=== PATIENT | female | born 1955 | race Caucasian/White ===

== ENCOUNTER 2018-06-03 05:36 | Inpatient (IN) ==
[~2018-06-03 05:36] MED LIST: Metoprolol Tartrate 25 MG Tablet PO SCH
[2018-06-03] MEDS ORDERED: Insulin Regular (For Infusion) 100 UNIT in Sodium Chlor 0.9% Inj 99 ML IV.CONT PRN ×2 (06:23→11:56)
[2018-06-03] MEDS ORDERED: Dextrose 50% in Water 50 ML Vial IV.PUSH PRN ×2 (06:23→11:56)
[2018-06-03] MEDS ORDERED: Chlorhexidine Gluconate 2% 1 Pack (2 Cloths) TOPICAL SCH (06:30)
[2018-06-03] MEDS ORDERED: Chlorhexidine 4% Topical 120 APPLIC/120 ML Bottle TOPICAL SCH (06:30)
[2018-06-03] MEDS ORDERED: Sodium Chloride 0.9% Irr Bot 500 ML, ceFAZolin Inj 500 MG IRRIGATION SCH ×2 (06:30)
[2018-06-03] MEDS ORDERED: Metoprolol Tartrate 25 MG Tablet PO SCH (06:30)
[2018-06-03] MEDS ORDERED: Heparin - SQ 10,000 UNITS/ML Vial ONE (06:46)
[2018-06-03] MEDS ORDERED: Sodium Chlor 0.9% Inj 500 ML IV.SIG SCH (07:00)
[2018-06-03] MEDS ORDERED: ceFAZolin Inj 2,000 MG in Sodium Chlor 0.9% Inj 80 ML IV.SIG SCH (07:00)
[2018-06-03] MEDS ORDERED: CUST1000P IRRIGATION ONE (07:21)
[2018-06-03] MEDS ORDERED: Potassium Chlor 40 mEq Premix 40 MEQ/100 ML PIGGYBACK ONE (07:21)
[2018-06-03] MEDS ORDERED: Calcium Chloride Inj 1 GM/10 ML Syringe ONE (07:22)
[2018-06-03] MEDS ORDERED: Heparin 10,000 UNITS/10 ML Vial (for IV use) ONE (07:22)
[2018-06-03] MEDS ORDERED: Albumin Human 25% Inj 50 ML IV.SIG ONE (07:23)
[2018-06-03] MEDS ORDERED: Clevidipine Inj 25 MG/50 ML VIAL IV.CONT PRN (11:56)
[2018-06-03] MEDS ORDERED: Magnesium Sulfate Inj 2 GM in Sodium Chlor 0.9% Inj 96 ML IV.SIG PRN ×4 (11:56)
[2018-06-03] MEDS ORDERED: RESP: Racemic Epinephrine 2.25% 0.5 ML Neb NEB SCH (11:56)
[2018-06-03] MEDS ORDERED: Albumin Human 5% Inj 250 ML IV.SIG PRN (11:56)
[2018-06-03] MEDS ORDERED: Potassium Chlor 20 mEq Premix 20 MEQ/100 ML PIGGYBACK IV.SIG PRN (11:56)
[2018-06-03] MEDS ORDERED: Calcium Chloride Inj 1 GM/10 ML Syringe IV.PUSH PRN (11:56)
[2018-06-03] MEDS ORDERED: Metoprolol Inj 5 MG/5 ML Vial IV.PUSH PRN (11:56)
[2018-06-03] MEDS ORDERED: Calcium Chloride Inj 1 GM in Sodium Chlor 0.9% Inj 100 ML IV.SIG PRN (11:56)
[2018-06-03] MEDS ORDERED: Dexmedetomidine Inj 200 MCG in Sodium Chlor 0.9% Inj 48 ML IV.CONT PRN (11:56)
[2018-06-03] MEDS ORDERED: Morphine Inj 4 MG/ML Vial IV.PUSH PRN (11:56)
[2018-06-03] MEDS ORDERED: Post-op Orders (for Pharmacy) OTHER STA (11:56)
[2018-06-03] MEDS ORDERED: Esmolol Bolus Inj 100 MG/10 ML Vial IV.PUSH ONE (12:00)
[2018-06-03] MEDS ORDERED: Sodium Chlor 0.9% Inj 100 ML IV.SIG ONE (12:00)
[2018-06-03] MEDS ORDERED: Protamine Sulfate Inj 250 MG/25 ML Vial IV.CONT ONE (12:00)
[2018-06-03] MEDS ORDERED: Phenylephrine/NS 1000 MCG/10ML Syringe IV.PUSH ONE (12:00)
[2018-06-03] MEDS ORDERED: Heparin - SQ 10,000 UNITS/ML Vial OTHER ONE (12:00)
[2018-06-03] MEDS ORDERED: Calcium Chloride Inj 1 GM/10 ML Syringe IV.CONT ONE (12:00)
[2018-06-03] MEDS ORDERED: Lidocaine 2% 100 MG/5 ML Syringe IV.PUSH ONE (12:00)
[2018-06-03] MEDS ORDERED: Sodium Chlor 0.9% Inj 250 ML IV.SIG ONE (12:00)
[2018-06-03] MEDS ORDERED: Aminocaproic Acid Inj 5,000 MG/20 ML Vial IV.CONT ONE (12:00)
[2018-06-03] MEDS ORDERED: Artificial Tears Opth Oint 3.5 GM Tube EACH EYE ONE (12:00)
--- NOTE | 2018-06-03 12:05 | P.OP ---
Date of procedure: 06/03/18 Anesthesia: LIMAA Surgeon: Nitin Douglas MD Operation and Findings: PREOPERATIVE DIAGNOSES 1. Severe Aortic Stenosis. 2. Severe aortic Insufficiency POSTOPERATIVE DIAGNOSES Same SURGICAL PROCEDURE Aortic Valve Replacement with a 25 mm Medtronic Mosaic Cinch Tissue valve. RISK ASSESSMENT ANALYST STEPHEN Lindsay ANESTHESIA General endotracheal. PARTY COORDINATOR Jackie Dunham CRNA, Gómez Strong MD PREPARATION ChloraPrep. NEEDLE, SPONGE AND INSTRUMENT COUNT Correct. DRAINS One 32-Urdu mediastinal tube. COMPLICATIONS None. INDICATIONS The patient is a 63-year-old lady with severe aortic stenosis, presenting for surgical correction of the above pathology. DESCRIPTION OF PROCEDURE The patient was brought to the operating room and placed supine on the OR table. Following the induction of adequate general endotracheal anesthesia and placement of appropriate monitoring devices, the patient was then prepped and draped in the standard sterile fashion. Median sternotomy was performed, the pericardium was divided in the midline and the cradle created. The patient was systemically heparinized and anticoagulation monitored by serial ACT measurements. Then 2 pursestring sutures of 2-0 Ethibond were placed on the aorta proximal to the takeoff of the innominate artery, another was placed in the right atrial appendage. At this point, aortic and 2-stage venous cannulae were introduced and attached to the arterial and venous components of the bypass circuit respectively. Antegrade cardioplegia cannula and a left ventricular vent, through the right superior pulmonary vein, were also placed. The patient was placed on cardiopulmonary bypass and core cooling initiated to a temperature of 32 degrees centigrade. The crossclamp was applied and 1 l of cardioplegia solution (Alf HTK) given in an antegrade fashion in addition to topical cooling with slushed saline. Upon achieving adequate diastolic arrest of the heart a transverse aortotomy was performed. Additional cardioplegia was given directly into the coronary ostia using a hand-held probe. 800 mL's was given into the left main and additional 500 mL was given down the right coronary artery. The aortic valve was then excised. The valve was very heavily calcified. Complete circumferential decalcification was performed and care was taken to aspirate and remove all particulate matter. Horizontal mattress sutures of interrupted 2-0 Ethibond were placed on the aortic annulus with pledgets on the ventricular side. After adequate sizing, a 25 mm Medtronic Mosaic tissue valve was brought in the surgical field and the sutures passed through the skirt. The valve was seated using Cor-knots. This appeared to be a good fit. Gradual rewarming was initiated and the aortotomy closed in 2 layers. This was with 4-0 Prolene; the 1st layer being horizontal mattress, the 2nd layer being running baseball stitch. The cross clamp was removed and upon achieving normothermic cardiac activity, transesophageal echocardiography revealed a well-situated aortic prosthesis with no evidence of perivalvular leak and no aortic stenosis or aortic regurgitation. Protamine was administered. Decannulation was performed and all sites were inspected for hemostasis. At this point the closure was undertaken. The pericardium was reapproximated in the midline. One chest tube was placed, and the sternum was reapproximated using stainless steel sternal wires. The musculo-fascial layer was then closed in 3 layers. The patient tolerated the procedure well and was transferred to open heart recovery in stable condition.
[2018-06-03 12:36] LABS: ABG Base Excess -1.5 mmol/L (-2-2); ABG PCO2 42 mmHg (38-42); ABG PO2 100 mmHG (61-120)
[2018-06-03] MEDS ORDERED: fentaNYL Citrate Inj 250 MCG/5 ML Ampul ONE (12:41)
--- NOTE | 2018-06-03 13:17 | XR ---
EXAM DATE: 06/03/2018 1:10 PM EDT AGE/SEX: 63 years / Female INDICATIONS: Post AVR. CLINICAL DATA: This is the patient's initial encounter. Patient reports that signs and symptoms have been present for 1 day and indicates a pain score of Nonresponsive. MEDICAL/SURGICAL HISTORY: Hypertension. Aortic valve stenosis. Hysterectomy. Cholecystectomy. Tubal ligation. COMPARISON: [facility] [place] CHEST TRANSAORTIC VALVE [place]P, 05/05/2018. . FINDINGS: Portable AP view of the chest demonstrates a normal-sized cardiac silhouette in this patient post med tiny sternotomy. Endotracheal tube distal tip measures 4.3 cm from the jerson and nasogastric tube dis brennan tip is in the stomach. Mediastinal drain is present. Right IJ line distal tip is in the SVC. Lung s are underinflated with bibasilar airspace opacity, left greater than right. No pleural effusion or pneumothorax is identified. The bones and soft tissues demonstrate no acute finding. Breast implants are present. CONCLUSION: 1. Underinflation with atelectasis at the right lung base and atelectasis versus consolidation at th e left lung base. 2. Expected tubes and lines, as above. No pneumothorax is present. Electronically signed by: Jake Preciado MD 06/03/2018 1:16 PM EDT
--- NOTE | 2018-06-03 14:25 | P.PNCV ---
- Note Subjective/Hospital Course: 63/ female post cardiac cath severe , preserved LV, normal coronaries , seen in office 04/29/[address] Douglas. Initially presented with worsening SOB PMH: DM type 2, valvular heart disease, HLP, HTN electively admitted 06/03 surgery : Aortic Valve Replacement with a 25 mm Medtronic Mosaic Cinch Tissue valve. Objective: Vital Signs - 24 hr 06/03/18 07:09 06/03/18 12:30 Temperature 97.8 F Pulse Rate 62 Respiratory Rate 20 12 Blood Pressure 164/94 H Labs: Laboratory Results - last 12 hr 06/03/18 06/03/18 06/03/18 06:30 12:30 14:09 Puncture Site Art line Patient Temperature 98.6 O2 Saturation 95 ABG pH 7.36 L ABG pCO2 42 ABG pO2 100 ABG HCO3 23 ABG O2 Content 14.7 ABG Base Excess -1.5 ABG Methemoglobin 1.6 Hemoglobin 10.9 L Carboxyhemoglobin 1.1 O2 Delivery Device Ventilator Vent Setting Simv12/550/+5peep Inspired O2 60 Critical Value No POC Glucose 152 H Blood Type O Positive Antibody Screen Negative MTS Gel Crossmatch See Detail - Plan (3) Diabetes mellitus (3) Diabetes mellitus Qualifiers: Diabetes mellitus type: type 2
--- NOTE | 2018-06-03 14:31 | P.DCO ---
- Diagnosis (2) Diabetes mellitus - Home Health Nursing Instructions: Heart and Vascular Surgery patients *Special attention to sternal dressing Mandatory frequency Assess and evaluation, 4 days in a row The next week 3X week 2 times a week for 4 weeks 1 time a week for 5 weeks Schedule Heart and Vascular patients for full 60 day certification period Initial visit Review Open Heart Surgery Discharge Instructions (Sternal precautions, Activity, Elastic hose, Incision care, Driving, Incentive spirometry, Smoking, Schulter, Work and other) Need Betadine to paint incision Medication reconciliation Importance of follow up care/ check on appointments Make calendar record temperature daily When to call [facility] nurse, review instructions, phone list Incentive Spirometry, demonstration Visit 1- Begin discharge instruction for patient family and/ or caregiver using teach back method- Signs and symptoms of infection Disease characteristics Medicines and side effects Foods and nutrition/ appetite Infection control/ hand washing/ hygiene Visit 2- Continue teaching Discharge instructions- include additional information on smoking cessation , sternal dressing (sternal vac) Visit 3- Continue teaching- Cough and deep breathing, incision monitoring. Choose my plate Visit 4- Continue teaching- Discuss limitations Discuss how they are feeling Discuss progress toward goals Remaining visits- continue teaching and monitoring For any questions please call : Thursday 8am-5pm Heart & Vascular Surgery Office ( Dr. Douglas & Dr. Arreguin), After Hours / Nights (5pm -8am) Weekends and Holidays Please call [facility] Cardiac Intermediate Care Unit (CIC) Charge Nurse PREVENA Single Use Negative Wound Therapy System Caregiver Instruction Sheet 1. A Prevena dressing system was applied to the chest incision during surgery , to promote wound healing. It works via a suction device (negative pressure wound therapy) to remove low to moderate levels of exudate (drainage) and infectious materials. We recommend that the device stay in place for up to seven days, from day of surgery. 2. Day of Surgery__06/04/18 Day of Removal ____06/11/18 3. The dressing should only be removed by a health home care rn. Please arrange removal of device to coincide with Home Health visit and or with Nursing staff at Rehab 4. If skin reddening or irritation of skin occurs, or excessive drainage, please notify the Cardiovascular Surgeons office at [phone]. 5. Light showering is permissible; however the pump should be disconnected and placed in safe location, where it will not get wet. The dressing should not be exposed to direct spray or submerged in water. No bath tub / shower only. Ensure the end of the tubing attached to the dressing is facing down so that water does not enter the top of the tube. 6. To remove Prevena dressing: press purple button to turn off device / remove the suction. Then disconnect the tubing from the pump. The fixation strips should be stretched away from the skin and the dressing lifted at one corner and peeled back until it has been fully removed. 7. After removal, it is ok to shower daily using liquid dial soap and clean wash cloth, rinse and pat dry, and leave incision open to air dry. For any concerns regarding Prevena dressing, and or wounds, please contact Kirstin Fitch, patient navigator at [phone] or notify the Cardiovascular Surgeons office at [phone]. Incentive spirometry Q1 hr x 10, while awake, also use acapella device hourly whole awake Sternal Breast Bone Precautions: NO pushing or pulling, ( pt must use sternal pillow to support chest with all activities and with coughing ( takes up to 3 months breast bone to heal ) Daily incision care: ok to shower daily, no tub bath. Wash all incisions with liquid dial soap, clean wash cloth to each site, rinse and pat dry. Observe for any signs of infection, such as drainage which is dark yellow, rodrigez, green or foul smelling. Immediately report to the surgeon any drainage from the chest incision, or legs, and for any abnormal drainage from the chest tube sites. Notify surgeon if any temp >101.5 degrees F. When specialty dressing removed/ or if you do not have one, continue to shower daily as above, then rinse and pat incision dry and paint with betadine daily x 5 days. Allow steri strips to fall off if you have any. Avoid lotions, creams, salves, oils, etc. for the first month Please see attached forms for additional instructions regarding post Open Heart specialty wound vacuum dressings. [place] or Prevena , Dressing to be removed by Nursing staff on __06/11/18 F/U appointment: as per DC instructions: PCP in 2 weeks, CV surgeon 2 weeks, Forepart Reducer 3-4 weeks For any questions regarding incisions/ dressing / meds / post op care or above Symptoms, Thursday 8am-5pm Heart & Vascular Surgery Office ( Dr. Douglas & Dr. Arreguin), After Hours / Nights (5pm -8am) Weekends and Holidays Please call [facility] Cardiac Intermediate Care Unit (CIC) Charge Nurse - Certification I have seen patient Daisy Singleton on 06/03/18. My clinical findings support the need for the requested home health care services because: Deconditioned with increased weakness I certify that my clinical findings support that this patient is homebound because: Post-op weakness (2) Diabetes mellitus Qualifiers: Diabetes mellitus type: type 2
[2018-06-03] MEDS: fentaNYL Citrate Inj 100 MCG/2 ML Ampul IV.PUSH PRN ×4 (14:40→23:11)
[2018-06-03] MEDS: Potassium Chlor 20 mEq Premix 20 MEQ/100 ML PIGGYBACK IV.SIG PRN ×3 (15:26→22:30)
[2018-06-03] MEDS: Ketorolac Inj 30 MG/ML (IVP) Vial IV.PUSH PRN (19:40)
[2018-06-03] MEDS: Amiodarone 200 MG Tablet PO SCH (22:06)
[2018-06-03] MEDS: ceFAZolin Inj 2,000 MG in Sodium Chlor 0.9% Inj 80 ML IV.SIG SCH (22:06)
[2018-06-03] MEDS: Potassium Chlor 10 mEq Premix 10 MEQ/100 ML PIGGYBACK IV.SIG PRN (22:30)
[2018-06-04] MEDS: Potassium Chlor 10 mEq Premix 10 MEQ/100 ML PIGGYBACK IV.SIG PRN (00:45)
[2018-06-04] MEDS: Ketorolac Inj 30 MG/ML (IVP) Vial IV.PUSH PRN ×3 (02:05→20:26)
[2018-06-04] MEDS: fentaNYL Citrate Inj 100 MCG/2 ML Ampul IV.PUSH PRN ×2 (03:12→05:59)
[2018-06-04 04:24] LABS: Hematocrit 32.4 % (35.0-46.0); Hemoglobin 11.2 gm/dL (11.6-15.3); Mean Corpuscular HGB Conc 34.6 % (32.0-36.0); Mean Corpuscular Hemoglobin 31.8 pg (27.0-34.0); Mean Corpuscular Volume 91.9 fL (80.0-100.0); Platelet Count 171 th/mm3 (150-450); Red Blood Count 3.52 mil/mm3 (4.00-5.30); Red Cell Distribution Width 15.4 % (11.6-17.2)
[2018-06-04 04:30] LABS: Anion Gap 9 meq/L (5-15); Blood Urea Nitrogen 12 mg/dL (7-18); Calcium 8.4 mg/dL (8.5-10.1); Carbon Dioxide 27.1 meq/L (21.0-32.0); Chloride 105 meq/L (98-107); Glomerular Filtration Rate Greater Than 89 mL/min (>89); Glucose,Random 116 mg/dL (74-106); Magnesium 2.1 mg/dL (1.5-2.5); Potassium 3.7 meq/L (3.5-5.1); Sodium 141 meq/L (136-145)
[2018-06-04] MEDS ORDERED: Simethicone 125 MG Chew Tablet PO PRN (04:39)
--- NOTE | 2018-06-04 04:42 | XR ---
EXAM DATE: 06/04/2018 4:24 AM EDT AGE/SEX: 63 years / Female INDICATIONS: Chest pain and shortness of breath. CLINICAL DATA: This is the patient's subsequent encounter. Patient reports that signs and symptoms h ave been present for 1 day and indicates a pain score of 5/10. MEDICAL/SURGICAL HISTORY: Hypertension. Aortic valve stenosis. Cholecystectomy. Hysterectomy. CABG. COMPARISON: [facility], CHEST 1V SINGLE AP, 06/03/2018. . FINDINGS: Interval removal of the endotracheal and nasogastric tubes. Mediastinal drain has been DC'd. Right IJ central venous catheter is unchanged in position. Stable bibasilar atelectatic changes. Possible ass ociated left-sided effusion. Accounting for technique, heart size is upper limits of normal. Findings of prior CABG with intact median sternotomy wires and coronary ostial rings CONCLUSION: 1. Interval removal of the mediastinal drain, endotracheal and nasogastric tubes. 2. Stable bibasilar atelectatic changes with possible left-sided effusion. Electronically signed by: Janusz Edwards MD 06/04/2018 4:40 AM EDT
[2018-06-04] MEDS: ceFAZolin Inj 2,000 MG in Sodium Chlor 0.9% Inj 80 ML IV.SIG SCH ×3 (05:57→20:28)
[2018-06-04] MEDS: Potassium Chlor 20 mEq Premix 20 MEQ/100 ML PIGGYBACK IV.SIG PRN (06:20)
--- NOTE | 2018-06-04 07:38 | P.PNCV ---
- Note Subjective/Hospital Course: 63/ female post cardiac cath severe , preserved LV, normal coronaries , seen in office 04/29/[address] Douglas. Initially presented with worsening SOB PMH: DM type 2, valvular heart disease, HLP, HTN electively admitted 06/03 surgery : Aortic Valve Replacement with a 25 mm Medtronic Mosaic Cinch Tissue valve. 06/04 Doing well. Hemodynamic is stable Complaining of gas pain. Having flatus Pain control Transfer CPCU Maintain chest tube Pulmonary toiletry Objective: Vital Signs - 24 hr 06/03/18 12:30 06/03/18 12:50 06/03/18 13:00 Temperature 98.6 F 96.9 F L Pulse Rate 72 76 Respiratory Rate 12 14 Blood Pressure 110/64 122/74 Pulse Oximetry 06/03/18 15:00 06/03/18 15:50 06/03/18 16:00 Temperature 98.6 F Pulse Rate 76 Respiratory Rate 11 L Blood Pressure 113/80 Pulse Oximetry 96 95 06/03/18 16:03 06/03/18 19:00 06/03/18 20:35 Temperature 98.2 F Pulse Rate 77 77 Respiratory Rate 16 20 18 Blood Pressure 135/71 Pulse Oximetry 95 06/03/18 20:37 06/03/18 21:20 06/03/18 23:00 Temperature 98.6 F 98.2 F Pulse Rate 77 72 Respiratory Rate 16 16 Blood Pressure 134/70 Pulse Oximetry 97 95 06/04/18 03:00 Temperature 98.4 F Pulse Rate 75 Respiratory Rate 14 Blood Pressure 133/71 Pulse Oximetry 95 Labs: Laboratory Results - last 12 hr 06/03/18 06/03/18 06/03/18 19:39 20:56 22:23 WBC RBC Hgb Hct MCV MCH MCHC RDW Plt Count MPV Sodium Potassium Chloride Carbon Dioxide Anion Gap BUN Creatinine Estimated GFR POC Glucose 139 H 113 H 120 H Random Glucose Calcium Magnesium 06/03/18 06/04/18 06/04/18 23:17 00:28 02:00 WBC RBC Hgb Hct MCV MCH MCHC RDW Plt Count MPV Sodium Potassium Chloride Carbon Dioxide Anion Gap BUN Creatinine Estimated GFR POC Glucose 111 H 111 H 109 Random Glucose Calcium Magnesium 06/04/18 06/04/18 06/04/18 03:03 03:52 04:00 WBC 12.0 H RBC 3.52 L Hgb 11.2 L Hct 32.4 L MCV 91.9 MCH 31.8 MCHC 34.6 RDW 15.4 Plt Count 171 D MPV 8.0 Sodium Potassium Chloride Carbon Dioxide Anion Gap BUN Creatinine Estimated GFR POC Glucose 135 H 125 H Random Glucose Calcium Magnesium 06/04/18 06/04/18 06/04/18 04:00 05:57 06:19 WBC RBC Hgb Hct MCV MCH MCHC RDW Plt Count MPV Sodium 141 Potassium 3.7 Chloride 105 Carbon Dioxide 27.1 Anion Gap 9 BUN 12 Creatinine 0.63 Estimated GFR Greater than 89 POC Glucose 85 92 Random Glucose 116 H Calcium 8.4 L Magnesium 2.1 Result Diagrams: 06/04/18 04:00 06/04/18 04:00 - Plan (2) Diabetes mellitus (2) Diabetes mellitus Qualifiers: Diabetes mellitus type: type 2
[2018-06-04] MEDS ORDERED: Sod Phosphate/Sod Biphosphate (Adult) Enema 133 ML Bottle RECTAL PRN (07:39)
[2018-06-04] MEDS ORDERED: Bisacodyl 10 MG Supp RECTAL PRN (07:39)
[2018-06-04] MEDS ORDERED: Dextrose 50% in Water 50 ML Vial IV.PUSH PRN (07:39)
[2018-06-04] MEDS: Amiodarone 200 MG Tablet PO SCH ×2 (08:09→20:26)
[2018-06-04] MEDS: Atenolol 50 MG Tablet PO SCH ×2 (08:09→21:57)
[2018-06-04] MEDS: Multivitamin/Minerals Therapeutic Tablet PO SCH (08:54)
[2018-06-04] MEDS ORDERED: Non-Formulary Drug (Omega 3-Dha-Epa-Fish Oil [Fish Oil] 2 CAP) PO SCH (09:00)
[2018-06-04] MEDS: Insulin NovoLOG Aspart Correctional Sugar Inj SQ SCH ×3 (10:13→17:16)
[2018-06-04] MEDS: Docusate Sodium 100 MG Capsule PO SCH (20:26)
[2018-06-05] MEDS: Insulin NovoLOG Aspart Correctional Sugar Inj SQ SCH ×7 (01:42→22:01)
[2018-06-05] MEDS: Ketorolac Inj 30 MG/ML (IVP) Vial IV.PUSH PRN ×2 (02:18→08:29)
[2018-06-05 04:30] LABS: Calcium 8.2 mg/dL (8.5-10.1); Carbon Dioxide 28.5 meq/L (21.0-32.0); Magnesium 2.3 mg/dL (1.5-2.5); Potassium 4.4 meq/L (3.5-5.1)
[2018-06-05 04:31] LABS: Baso % (Auto) 0.4 % (0.0-2.0); Eos % (Auto) 0.3 % (0.0-4.0); Lymph # (Auto) 1.7 th/mm3 (1.0-4.8); Lymph % (Auto) 13.7 % (9.0-44.0); Mean Corpuscular HGB Conc 33.3 % (32.0-36.0); Mean Corpuscular Hemoglobin 31.1 pg (27.0-34.0); Mean Corpuscular Volume 93.5 fL (80.0-100.0); Mono # (Auto) 1.8 th/mm3 (0.0-0.9); Mono % (Auto) 14.4 % (0.0-8.0); Neut # (Auto) 8.7 th/mm3 (1.8-7.7); Neut % (Auto) 71.2 % (16.0-70.0); Platelet Count 153 th/mm3 (150-450); Red Blood Count 3.21 mil/mm3 (4.00-5.30); Red Cell Distribution Width 15.6 % (11.6-17.2); White Blood Count 12.2 th/mm3 (4.0-11.0)
[2018-06-05] MEDS: ceFAZolin Inj 2,000 MG in Sodium Chlor 0.9% Inj 80 ML IV.SIG SCH (05:25)
[2018-06-05] MEDS: Polyethylene Glycol 3350 17 GM Packet PO SCH (08:16)
[2018-06-05] MEDS: Multivitamin/Minerals Therapeutic Tablet PO SCH (08:16)
[2018-06-05] MEDS: Docusate Sodium 100 MG Capsule PO SCH ×2 (08:17→20:33)
[2018-06-05] MEDS: Atenolol 50 MG Tablet PO SCH ×2 (08:17→20:33)
[2018-06-05] MEDS: Amiodarone 200 MG Tablet PO SCH ×2 (08:17→20:32)
--- NOTE | 2018-06-05 10:09 | P.PNCV ---
- Note CVT: Post Op Day #: 2 Subjective/Hospital Course: 63/ female post cardiac cath severe , preserved LV, normal coronaries , seen in office 04/29/[address] Douglas. Initially presented with worsening SOB PMH: DM type 2, valvular heart disease, HLP, HTN electively admitted 06/03 surgery : Aortic Valve Replacement with a 25 mm Medtronic Mosaic Cinch Tissue valve. 06/04 Doing well. Hemodynamic is stable Complaining of gas pain. Having flatus Pain control Transfer CPCU Maintain chest tube Pulmonary toiletry 06/05/18 doing well, no complaints Objective: Vital Signs - 24 hr 06/04/18 11:00 06/04/18 12:00 06/04/18 13:00 Temperature 98.5 F Pulse Rate 70 68 70 Respiratory Rate 20 Blood Pressure 147/74 H Pulse Oximetry 93 L 06/04/18 13:28 06/04/18 13:30 06/04/18 14:00 Temperature Pulse Rate 69 76 Respiratory Rate 16 Blood Pressure Pulse Oximetry 94 L 06/04/18 15:00 06/04/18 16:00 06/04/18 17:00 Temperature 97.8 F Pulse Rate 72 74 78 Respiratory Rate 20 Blood Pressure 142/84 H Pulse Oximetry 94 L 06/04/18 18:00 06/04/18 19:00 06/04/18 20:00 Temperature 98.3 F Pulse Rate 80 82 76 Respiratory Rate 16 Blood Pressure 147/80 H Pulse Oximetry 92 L 06/04/18 21:00 06/04/18 21:08 06/04/18 22:00 Temperature Pulse Rate 80 80 82 Respiratory Rate 16 Blood Pressure Pulse Oximetry 06/04/18 23:00 06/05/18 00:00 06/05/18 01:00 Temperature 98.4 F Pulse Rate 78 74 70 Respiratory Rate 22 Blood Pressure 151/84 H Pulse Oximetry 94 L 06/05/18 02:00 06/05/18 03:00 06/05/18 04:00 Temperature 98.8 F Pulse Rate 76 73 76 Respiratory Rate 16 Blood Pressure 121/69 Pulse Oximetry 94 L 06/05/18 05:00 06/05/18 06:00 06/05/18 08:17 Temperature Pulse Rate 76 68 75 Respiratory Rate 18 Blood Pressure Pulse Oximetry 06/05/18 08:18 06/05/18 08:50 06/05/18 08:51 Temperature Pulse Rate Respiratory Rate 18 18 Blood Pressure Pulse Oximetry 95 Labs: Laboratory Results - last 12 hr 06/05/18 06/05/18 06/05/18 02:22 03:55 03:55 WBC 12.2 H RBC 3.21 L Hgb 10.0 L Hct 30.0 L MCV 93.5 MCH 31.1 MCHC 33.3 RDW 15.6 Plt Count 153 MPV 8.0 Neut % (Auto) 71.2 H Lymph % (Auto) 13.7 [place] % (Auto) 14.4 H Eos % (Auto) 0.3 Baso % (Auto) 0.4 Neut # (Auto) 8.7 H Lymph # (Auto) 1.7 [place] # (Auto) 1.8 H Eos # (Auto) 0.0 Baso # (Auto) 0.0 WBC Differential . Differential Comment Auto diff final Sodium 140 Potassium 4.4 Chloride 105 Carbon Dioxide 28.5 Anion Gap 7 BUN 21 H Creatinine 0.80 Estimated GFR 72 L POC Glucose 124 H Random Glucose 118 H Calcium 8.2 L Magnesium 2.3 06/05/18 06/05/18 05:26 08:12 WBC RBC Hgb Hct MCV MCH MCHC RDW Plt Count MPV Neut % (Auto) Lymph % (Auto) [place] % (Auto) Eos % (Auto) Baso % (Auto) Neut # (Auto) Lymph # (Auto) [place] # (Auto) Eos # (Auto) Baso # (Auto) WBC Differential Differential Comment Sodium Potassium Chloride Carbon Dioxide Anion Gap BUN Creatinine Estimated GFR POC Glucose 126 H 120 H Random Glucose Calcium Magnesium Result Diagrams: 06/05/18 03:55 06/05/18 03:55 Imaging: Chest X-Ray 06/04/18 05:00 CONCLUSION: 1. Interval removal of the mediastinal drain, endotracheal and nasogastric tubes. 2. Stable bibasilar atelectatic changes with possible left-sided effusion. Cardiovascular: RRR Telemetry: NSR Pulmonary: CTA Incision: dry and intact CT: ~30ml/12 hrs - Plan (2) Diabetes mellitus Remove chest tubes Encourage ambulation Up to chair Possible D/C tomorrow (2) Diabetes mellitus Qualifiers: Diabetes mellitus type: type 2
--- NOTE | 2018-06-05 17:29 | ECG ---
Date Performed: 06/04/2018 Time Performed: 05:30:10 PTAGE: 63 years EKG: Sinus rhythm Extensive ST-T changes may be due to myocardial ischemia Low QRS voltages in precordial leads Abnorm al ECG PREVIOUS TRACING : 05/27/2018 10.15 DOCTOR: Dejah Hernandez Interpretating Date/Time 06/05/2018 17:26:47
[2018-06-06] MEDS: Docusate Sodium 100 MG Capsule PO SCH (08:57)
[2018-06-06] MEDS: Amiodarone 200 MG Tablet PO SCH (08:57)
[2018-06-06] MEDS: Insulin NovoLOG Aspart Correctional Sugar Inj SQ SCH (09:00)
[2018-06-06] MEDS: Atenolol 50 MG Tablet PO SCH (09:49)
[2018-06-06] MEDS: Multivitamin/Minerals Therapeutic Tablet PO SCH (09:49)
[2018-06-06] MEDS: Polyethylene Glycol 3350 17 GM Packet PO SCH (09:51)
--- NOTE | 2018-06-06 11:53 | P.DS ---
Date of admission: 06/03/18 05:36 Primary care physician: Kate Bonner MD Attending physician on discharge: Nitin Douglas Anticipated date of discharge: 06/06/18 Brief History from admission: Subjective/Hospital Course: 63/ female post cardiac cath severe , preserved LV, normal coronaries , seen in office 04/29/[address] Douglas. Initially presented with worsening SOB PMH: DM type 2, valvular heart disease, HLP, HTN DS: Diagnosis - Discharge Diagnosis (1) Aortic stenosis Status: Acute Diagnosis: Principal (2) Diabetes mellitus Status: Acute Diagnosis: Secondary (3) Hypertension Status: Acute Diagnosis: Secondary (4) S/P aortic valve replacement Status: Acute Diagnosis: Principal DS: Medications - Discharge Medications Prescriptions: hydrocodone-acetaminophen 1 tab PO Q3H PRN #30 tab PRN Reason: Pain Scale 1 To 5 DS: Summary Hospital Course: electively admitted 06/03 surgery : Aortic Valve Replacement with a 25 mm [employer] Mosaic Cinch Tissue valve. 06/04 Doing well. Hemodynamic is stable Complaining of gas pain. Having flatus Pain control Transfer CPCU Maintain chest tube Pulmonary toiletry 06/05/18 doing well, no complaints 06/06/18 Ready for discharge. - Time Spent with Patient Total time spent providing and/or coordinating discharge services: Greater than 30 minutes - Quality: VTE Deep Vein Thrombosis/Pulmonary Embolism Present on Admission: No Exam Vital signs: Vital Signs 06/05/18 12:00 06/05/18 13:00 06/05/18 13:57 Temperature Pulse Rate 84 70 75 Respiratory Rate 16 Blood Pressure Pulse Oximetry 06/05/18 14:00 06/05/18 15:00 06/05/18 15:44 Temperature 98.5 F Pulse Rate 70 74 69 Respiratory Rate 18 Blood Pressure 112/64 Pulse Oximetry 93 L 06/05/18 17:00 06/05/18 17:59 06/05/18 19:00 Temperature 97.6 F Pulse Rate 94 H 83 80 Respiratory Rate 18 Blood Pressure 114/73 Pulse Oximetry 93 L 06/05/18 20:00 06/05/18 21:00 06/05/18 21:18 Temperature Pulse Rate 78 72 71 Respiratory Rate 18 Blood Pressure Pulse Oximetry 93 L 06/05/18 22:00 06/05/18 23:00 06/06/18 00:00 Temperature 98.6 F Pulse Rate 78 73 72 Respiratory Rate 16 Blood Pressure 114/77 Pulse Oximetry 97 06/06/18 01:00 06/06/18 02:00 06/06/18 03:00 Temperature 98.2 F Pulse Rate 70 70 74 Respiratory Rate 16 Blood Pressure 123/75 Pulse Oximetry 95 06/06/18 04:00 06/06/18 05:00 06/06/18 06:00 Temperature Pulse Rate 74 68 71 Respiratory Rate Blood Pressure Pulse Oximetry 06/06/18 07:00 06/06/18 08:00 06/06/18 08:43 Temperature 97.8 F Pulse Rate 64 72 Respiratory Rate 17 18 Blood Pressure 133/86 Pulse Oximetry 96 06/06/18 09:00 06/06/18 10:00 Temperature Pulse Rate 80 81 Respiratory Rate 18 Blood Pressure Pulse Oximetry 93 L Intake & Output 06/05/18 06/06/18 06/06/18 18:59 06:59 18:59 Intake Total 620 / 620 240 / 240 Output Total 300 / 300 Balance 320 / 320 240 / 240 Weight 87.5 kg Intake: Oral 620 / 620 240 / 240 Output: Urine 300 / 300 Other: # Voids 4 11 Date of Last Bowel Movement 06/05/18 06/06/18 # Bowel Movements 3 - Constitutional no acute distress - Routine HEENT Exam Head: Present: normocephalic, atraumatic Eye: Present: EOMI, PERRL, normal accommodation - Routine Neck Exam Present: supple, full ROM - Routine Chest/Breast/Axilla Exam Comments: wound - dry and intact - Routine Respiratory Exam Present: CTA bilaterally - Routine Cardiovascular Exam Present: RRR - Routine Abdominal Exam Present: soft, normoactive bowel sounds - Routine Extremities Exam Present: pulses intact - Routine Skin Exam Present: intact - Routine Neurological Exam Present: alert, oriented X3 Results Procedures completed during hospitalization: AVR - 23 Mosaic tissue valve Completed studies during hospitalization: Pending at discharge 06/03/18 13:10 Surgical [PTH] Routine Labs on day of discharge: Labs from last 24 hours 06/06/18 06/06/18 06/05/18 11:18 07:56 20:28 POC Glucose 89 120 H 144 H MTS Gel Crossmatch 06/05/18 06/05/18 06/03/18 16:23 11:51 06:30 POC Glucose 94 122 H MTS Gel Crossmatch See Detail - Impressions ITS Impressions Chest X-Ray 06/04/18 05:00 CONCLUSION: 1. Interval removal of the mediastinal drain, endotracheal and nasogastric tubes. 2. Stable bibasilar atelectatic changes with possible left-sided effusion. Discharge Plan - Discharge Disposition Patient Disposition: Disch W/Home Health Service - Discharge Condition Condition: Good - Discharge Order Discharge Orders: Discharge Order (Routine); Ordered 06/06/18 Ordered By: Francie Arreguin - Discharge Details Anticipated Discharge Date: 06/06/18 - Physicians Team Primary Care Provider: Kate Bonner Attending Provider: Nitin Douglas Other Providers: [facility] - Rxs /Orders / Referrals /Forms Prescriptions: New amiodarone 200 mg Tablet 200 mg PO Q12HR Qty: 28 RF: 0 docusate sodium [DOK] 100 mg Capsule 100 mg PO BID RF: 0 hydrocodone-acetaminophen 5-325 mg Tablet 1 tab PO Q3H PRN (Reason: Pain Scale 1 To 5) Qty: 30 RF: 0 pantoprazole 40 mg Tablet,Delayed Release (Dr/Ec) 40 mg PO DAILY@06 Qty: 14 RF: 0 Continue ascorbic acid (vitamin C) [Vitamin C] 1,000 mg Tablet 1,000 mg PO DAILY aspirin [Aspirin Low Dose] 81 mg Tablet,Delayed Release (Dr/Ec) 81 mg PO DAILY atenolol 50 mg Tablet 50 mg PO BID [id number] 50-325-40 mg Tablet 1 tab PO Q6H PRN (Reason: Migraine Headache) cholecalciferol (vitamin D3) [Vitamin D3] 5,000 unit Tablet 5,000 unit PO DAILY clonidine HCl 0.1 mg Tablet 0.1 mg PO HS coenzyme Q10 [Co Q-10] 100 mg Capsule 100 mg PO DAILY diphenhydramine HCl 25 mg Tablet 25 mg PO HS lactobacillus combination no.4 [Probiotic] 3 billion cell Capsule 3,000 mmu cells PO DAILY metformin 500 mg Tablet Extended Release 24 Hr 500 mg PO BID omega 3-rod-spx-fish oil [Fish Oil] 1,000 mg (120 mg-180 mg) Capsule 2 cap PO DAILY rosuvastatin 20 mg Tablet 20 mg PO DAILY vitamin E 400 unit Capsule 400 unit PO DAILY Discontinued cinnamon bark [Cinnamon] 500 mg Capsule 1 cap PO DAILY enalapril maleate 20 mg Tablet 20 mg PO BID mupirocin 2 % Ointment 1 applic TOPICAL BID ranitidine HCl 150 mg Tablet 150 mg PO DAILY triamterene-hydrochlorothiazid 37.5-25 mg Capsule 1 cap PO DAILY Referrals: Kate Bonner MD [Primary Care Provider] - See Instructions ( Your appointment has been scheduled for [06/22/18] at [3:00 pm] If you cannot make this appointment, please call the office to reschedule ) Danna Carbajal [[facility]VANCE RN PRACTITIONER] - See Instructions ( Your appointment has been scheduled for [06/29/18] at [11:15 am] If you cannot make this appointment, please call the office to reschedule ) Segundo Vanegas DO [Physician] - See Instructions ( Your appointment has been scheduled for [07/02/18] at [10:30 am] If you cannot make this appointment, please call the office to reschedule ) - Discharge Instructions Patient Printed Instructions: Hydrocodone/Acetaminophen (By mouth), Amiodarone (By mouth), Laxative, Stool Softeners (By mouth), Pantoprazole (By mouth), Aortic Valve Replacement (DC), Wound Infection (ED), Acute Wound Care (DC)
== END 2018-06-06 12:30 | disposition home health service (06) ==
LOC: HSDI 05:36 → HCVI 12:24 → HCPC 06-04 10:10
PROVIDERS: ADMIT Thoracic Surgery (Cardiothoracic Vascular Surgery); ATTEND Thoracic Surgery (Cardiothoracic Vascular Surgery)
PROC: MINIAVR (2018-06-03 07:32)